=== PATIENT | male | born 1935 | race Caucasian/White ===

== ENCOUNTER 2022-01-31 10:39 | Emergency (ER) | payer MEDICARE, OTHER ==
[2022-01-31 10:52] VITALS: BP 100/53; PULSE 76
[2022-01-31] MEDS ORDERED: Ketorolac 30 MG/ML SDV IM ONE (12:05)
== END 2022-01-31 12:53 | disposition home or self-care (01) ==
LOC: JD.ED 10:39
DX: S80.01XA Contusion of right knee, initial encounter (principal); E11.9 Type 2 diabetes mellitus without complications; F17.210 Nicotine dependence, cigarettes, uncomplicated; Z79.899 Other long term (current) drug therapy; W01.0XXA Fall on same level from slipping, tripping and stumbling without subsequent striking against object, initial encounter
CPT/HCPCS: 73564; 96372; 99283; J1885

== ENCOUNTER 2023-05-10 15:30 | Emergency (ER) | payer MEDICARE, OTHER ==
[2023-05-10] MEDS ORDERED: Lidocaine 2% with EPINEPHrine 1:100,000 20 ML MDV INJECT ONE (16:46)
[2023-05-10] MEDS ORDERED: Diphtheria,Pertussis(Acell),Tetanus Vaccine 0.5 ML Syringe IM ONE (16:54)
[2023-05-10 17:22] LABS: INR 2.75; PROTHROMBIN TIME 27.3 SECONDS (9.7-12.0)
[2023-05-10 19:26] VITALS: BP 135/64; PULSE 83
== END 2023-05-10 18:35 | disposition home or self-care (01) ==
LOC: JD.ED 15:30
DX: S01.01XA Laceration without foreign body of scalp, initial encounter (principal); Z23 Encounter for immunization; D68.2 Hereditary deficiency of other clotting factors; E11.9 Type 2 diabetes mellitus without complications; I48.91 Unspecified atrial fibrillation; F17.210 Nicotine dependence, cigarettes, uncomplicated; Z79.01 Long term (current) use of anticoagulants; Z79.899 Other long term (current) drug therapy; W01.198A Fall on same level from slipping, tripping and stumbling with subsequent striking against other object, initial encounter
CPT/HCPCS: 12002; 36415; 70450; 70450-26; 85610; 90471; 90715; 99284-25; J3490

== ENCOUNTER 2023-05-21 14:30 | Emergency (ER) | payer MEDICARE, OTHER ==
[2023-05-21 14:57] VITALS: BP 102/60; PULSE 85
== END 2023-05-21 14:55 ==
LOC: JD.ED 14:30
DX: Z48.02 Encounter for removal of sutures (principal)
CPT/HCPCS: 99281

== ENCOUNTER 2024-10-12 17:46 | Emergency (ER) | payer MEDICARE, OTHER ==
[2024-10-12 18:00] LABS: BASOPHILS PERCENT AUTO 0.1 % (0.0-1.0); HEMOGLOBIN 11.4 gm/dl (14.0-18.0); IMMATURE GRAN ABSOLUTE AUTO 0.12 K/mm3 (0.00-0.05); IMMATURE GRAN PERCENT AUTO 0.7 % (0.0-0.4); LYMPHOCYTES PERCENT AUTO 5.5 % (24.0-44.0); MEAN CORPUSCULAR HEMOGLOBIN 26.1 pg (28.0-32.0); MEAN CORPUSCULAR HGB CONC 31.7 g/dl (32.0-36.0); MEAN CORPUSCULAR VOLUME 82.4 fl (83.0-99.0); MEAN PLATELET VOLUME 10.3 fl (9.4-12.4); MONOCYTES ABSOLUTE AUTO 1.1 K/mm3 (0.0-0.8); MONOCYTES PERCENT AUTO 6.2 % (0.0-8.0); NEUTROPHILS ABSOLUTE AUTO 16.1 K/mm3 (1.8-7.7); NEUTROPHILS PERCENT AUTO 87.5 % (41.0-71.0); PLATELET COUNT,PLT 298 K/mm3 (150-400); RED BLOOD CELL COUNT 4.37 M/mm3 (4.52-5.90); WHITE BLOOD CELL COUNT,WBC 18.34 K/mm3 (3.9-11.3)
[2024-10-12 18:30] LABS: A/G RATIO 0.8 (1-2); ALBUMIN 3.2 g/dl (3.4-5.0); ANION GAP 20.3 (5-15); BILIRUBIN TOTAL 1.3 mg/dL (0.2-1.0); BUN/CREATININE RATIO 38.5 (14-18); CALCIUM 8.9 mg/dL (8.5-10.1); CREATININE 1.3 mg/dL (0.7-1.3); EST CRCL DRUG DOSING (CG) 29.8 mL/min; MAGNESIUM 2.1 mg/dL (1.8-2.4); POTASSIUM,K 4.3 mEq/L (3.5-5.1)
[2024-10-12 18:34] LABS: INR 3.56; PROTHROMBIN TIME 34.7 SECONDS (9.7-12.0)
[2024-10-12 18:35] LABS: PTT,PARTIAL THROMBOPLSTIN TIME 43.2 SECONDS (21.7-31.4)
[2024-10-12] MEDS: Sodium Chloride 0.9% 1,000 ML IV ONE ×2 (18:37→19:53)
[2024-10-12 18:42] LABS: LACTIC ACID 1.7 mmol/L (0.4-2.0)
[2024-10-12 19:18] LABS: APPEARANCE,URINE CLEAR (Clear); BILIRUBIN,URINE 1+ (Negative); COLOR,URINE YELLOW (Yellow); GLUCOSE,URINE NEGATIVE (Negative); KETONES,URINE 2+ (Negative); LEUKOCYTE ESTERASE,URINE NEGATIVE (Negative); NITRITE,URINE NEGATIVE (Negative); OCCULT BLOOD,URINE 2+ (Negative); PH,URINE 5.5 (5.0-8.0); PROTEIN,URINE 1+ (Negative); UROBILINOGEN,URINE 0.2 (0.2-1.0)
[2024-10-12 19:48] LABS: EPITHELIAL CELLS,URINE 0-5 /hpf (0-5); RBC,URINE 0-5 /hpf (0-5); WBC,URINE 0-5 /hpf (0-5)
[2024-10-12 19:49] LABS: BACTERIA,URINE FEW /hpf (FEW); HYALINE CASTS,URINE 0-5 /lpf (0-5); MUCUS,URINE RARE /hpf (FEW)
[2024-10-12 21:38] VITALS: BP 127/79; PULSE 91
== END 2024-10-12 21:36 | disposition left against medical advice (07) ==
LOC: JD.ED 17:46
DX: M62.82 Rhabdomyolysis (principal); I48.91 Unspecified atrial fibrillation; E11.9 Type 2 diabetes mellitus without complications; Z79.899 Other long term (current) drug therapy; Z79.01 Long term (current) use of anticoagulants; Z53.20 Procedure and treatment not carried out because of patient's decision for unspecified reasons
CPT/HCPCS: 36415; 70450; 71045; 80053; 80307; 81001; 82550; 83605; 83735; 84484; 85025; 85610; 85730; 87040; 93005; 96360; 96361; 99285; J7030

== ENCOUNTER 2024-10-15 12:55 | Inpatient (IN) | payer MEDICARE, OTHER ==
[2024-10-15] MEDS: Sodium Chloride 0.9% 500 ML IV SCH ×2 (13:20→15:00)
[2024-10-15] MEDS: Sodium Chloride 0.9% 10 ML Syringe FLUSH PRN ×2 (13:23)
[2024-10-15 13:39] LABS: BASOPHILS PERCENT AUTO 0.2 % (0.0-1.0); EOSINOPHILS ABSOLUTE AUTO 0.1 K/mm3 (0.0-0.4); EOSINOPHILS PERCENT AUTO 0.5 % (0.0-6.0); HEMATOCRIT 37.2 % (42.0-52.0); HEMOGLOBIN 11.6 gm/dl (14.0-18.0); IMMATURE GRAN PERCENT AUTO 1.1 % (0.0-0.4); LYMPHOCYTES ABSOLUTE AUTO 0.8 K/mm3 (1.0-4.8); LYMPHOCYTES PERCENT AUTO 4.5 % (24.0-44.0); MEAN CORPUSCULAR HEMOGLOBIN 26.3 pg (28.0-32.0); MEAN CORPUSCULAR HGB CONC 31.2 g/dl (32.0-36.0); MEAN CORPUSCULAR VOLUME 84.4 fl (83.0-99.0); MEAN PLATELET VOLUME 10.4 fl (9.4-12.4); MONOCYTES PERCENT AUTO 5.4 % (0.0-8.0); NEUTROPHILS ABSOLUTE AUTO 16.3 K/mm3 (1.8-7.7); NEUTROPHILS PERCENT AUTO 88.3 % (41.0-71.0); PLATELET COUNT,PLT 335 K/mm3 (150-400); RED BLOOD CELL COUNT 4.41 M/mm3 (4.52-5.90); WHITE BLOOD CELL COUNT,WBC 18.42 K/mm3 (3.9-11.3)
[2024-10-15 14:01] LABS: INR 6.24; PROTHROMBIN TIME 58.7 SECONDS (9.7-12.0)
[2024-10-15 14:01] LABS: LACTIC ACID 1.9 mmol/L (0.4-2.0)
[2024-10-15 14:10] LABS: A/G RATIO 0.9 (1-2); ALBUMIN 3.3 g/dl (3.4-5.0); ANION GAP 20.9 (5-15); BILIRUBIN TOTAL 0.9 mg/dL (0.2-1.0); BUN/CREATININE RATIO 65.8 (14-18); CALCIUM 9.2 mg/dL (8.5-10.1); CREATININE 1.2 mg/dL (0.7-1.3); EST CRCL DRUG DOSING (CG) 32.13 mL/min; MAGNESIUM 2.6 mg/dL (1.8-2.4); POTASSIUM,K 3.9 mEq/L (3.5-5.1); PROTEIN TOTAL,TP 7.2 g/dl (6.4-8.2)
[2024-10-15] MEDS: Sodium Chloride 0.9% 1,000 ML IV SCH (16:14)
[2024-10-15] MEDS: Dextrose 5% in Water 1,000 ML IV SCH (17:23)
[2024-10-15] MEDS ORDERED: Acetaminophen 325 MG Tab PO PRN (17:40)
[2024-10-15 19:08] LABS: APPEARANCE,URINE CLEAR (Clear); BILIRUBIN,URINE 1+ (Negative); COLOR,URINE YELLOW (Yellow); GLUCOSE,URINE NEGATIVE (Negative); KETONES,URINE 2+ (Negative); LEUKOCYTE ESTERASE,URINE NEGATIVE (Negative); NITRITE,URINE NEGATIVE (Negative); OCCULT BLOOD,URINE 2+ (Negative); PROTEIN,URINE 1+ (Negative); UROBILINOGEN,URINE 0.2 (0.2-1.0)
[2024-10-15 19:37] LABS: SODIUM,NA 159 mEq/L (136-145)
[2024-10-15 19:38] LABS: OSMOLALITY,SERUM 362 mosm/kg (280-300)
[2024-10-15 19:39] LABS: OSMOLALITY,URINE 788 mosm/kg (400-1100)
[2024-10-15 19:44] LABS: RBC,URINE 20-30 /hpf (0-5); WBC,URINE 0-5 /hpf (0-5)
[2024-10-15 19:45] LABS: BACTERIA,URINE FEW /hpf (FEW); MUCUS,URINE FEW /hpf (FEW); SQUAMOUS EPITHELIAL CELLS,UR 0-5 /hpf (0-5)
[2024-10-15 19:57] LABS: SODIUM,URINE RANDOM 11 mEq/L (40-220)
[2024-10-16 04:23] LABS: BASOPHILS PERCENT AUTO 0.1 % (0.0-1.0); HEMATOCRIT 30.3 % (42.0-52.0); HEMOGLOBIN 9.5 gm/dl (14.0-18.0); IMMATURE GRAN ABSOLUTE AUTO 0.15 K/mm3 (0.00-0.05); IMMATURE GRAN PERCENT AUTO 0.9 % (0.0-0.4); LYMPHOCYTES ABSOLUTE AUTO 1.1 K/mm3 (1.0-4.8); LYMPHOCYTES PERCENT AUTO 6.6 % (24.0-44.0); MEAN CORPUSCULAR HEMOGLOBIN 26.1 pg (28.0-32.0); MEAN CORPUSCULAR HGB CONC 31.4 g/dl (32.0-36.0); MEAN CORPUSCULAR VOLUME 83.2 fl (83.0-99.0); MEAN PLATELET VOLUME 10.3 fl (9.4-12.4); MONOCYTES PERCENT AUTO 5.9 % (0.0-8.0); NEUTROPHILS ABSOLUTE AUTO 14.3 K/mm3 (1.8-7.7); NEUTROPHILS PERCENT AUTO 86.5 % (41.0-71.0); PLATELET COUNT,PLT 264 K/mm3 (150-400); RED BLOOD CELL COUNT 3.64 M/mm3 (4.52-5.90); WHITE BLOOD CELL COUNT,WBC 16.48 K/mm3 (3.9-11.3)
[2024-10-16 04:57] LABS: A/G RATIO 0.7 (1-2); ALBUMIN 2.5 g/dl (3.4-5.0); ANION GAP 11.3 (5-15); BILIRUBIN TOTAL 0.5 mg/dL (0.2-1.0); CALCIUM 8.2 mg/dL (8.5-10.1); EST CRCL DRUG DOSING (CG) 35.37 mL/min; POTASSIUM,K 3.3 mEq/L (3.5-5.1); PROTEIN TOTAL,TP 5.9 g/dl (6.4-8.2)
[2024-10-16 05:38] LABS: INR 7.8; PROTHROMBIN TIME 72.3 SECONDS (9.7-12.0)
[2024-10-16] MEDS: Phytonadione 5 MG Tab PO ONE (06:31)
[2024-10-16 13:26] LABS: HEMATOCRIT 31.4 % (42.0-52.0); HEMOGLOBIN 9.8 gm/dl (14.0-18.0)
[2024-10-17 05:42] LABS: BASOPHILS PERCENT AUTO 0.1 % (0.0-1.0); EOSINOPHILS ABSOLUTE AUTO 0.1 K/mm3 (0.0-0.4); HEMATOCRIT 28.6 % (42.0-52.0); IMMATURE GRAN ABSOLUTE AUTO 0.15 K/mm3 (0.00-0.05); IMMATURE GRAN PERCENT AUTO 1.5 % (0.0-0.4); LYMPHOCYTES ABSOLUTE AUTO 1.5 K/mm3 (1.0-4.8); LYMPHOCYTES PERCENT AUTO 14.3 % (24.0-44.0); MEAN CORPUSCULAR HEMOGLOBIN 26.4 pg (28.0-32.0); MEAN CORPUSCULAR HGB CONC 31.5 g/dl (32.0-36.0); MEAN CORPUSCULAR VOLUME 83.9 fl (83.0-99.0); MEAN PLATELET VOLUME 9.8 fl (9.4-12.4); MONOCYTES ABSOLUTE AUTO 0.8 K/mm3 (0.0-0.8); MONOCYTES PERCENT AUTO 7.5 % (0.0-8.0); NEUTROPHILS ABSOLUTE AUTO 7.8 K/mm3 (1.8-7.7); NEUTROPHILS PERCENT AUTO 75.6 % (41.0-71.0); PLATELET COUNT,PLT 219 K/mm3 (150-400); RED BLOOD CELL COUNT 3.41 M/mm3 (4.52-5.90)
[2024-10-17 06:00] LABS: INR 1.37
[2024-10-17 06:13] LABS: A/G RATIO 0.7 (1-2); ALBUMIN 2.2 g/dl (3.4-5.0); ANION GAP 10.4 (5-15); BILIRUBIN TOTAL 0.5 mg/dL (0.2-1.0); CALCIUM 8.1 mg/dL (8.5-10.1); CREATININE 0.8 mg/dL (0.7-1.3); EST CRCL DRUG DOSING (CG) 45.7 mL/min; POTASSIUM,K 3.4 mEq/L (3.5-5.1); PROTEIN TOTAL,TP 5.5 g/dl (6.4-8.2)
[2024-10-17 06:26] LABS: BUN/CREATININE RATIO 37.5 (14-18)
[2024-10-17 06:34] LABS: PROTHROMBIN TIME 14.2 SECONDS (9.7-12.0)
[2024-10-17] MEDS: Sodium Chloride 0.9% 250 ML IV ONE (08:03)
[2024-10-17] MEDS: D5 1/2 NS w/ 10 mEq/L KCl 1,000 ML IV SCH (08:27)
[2024-10-17] MEDS ORDERED: Naloxone 0.4 MG/ML SDV IVPUSH PRN (09:02)
[2024-10-17] MEDS ORDERED: Acetaminophen 325 MG Tab PO PRN (09:03)
[2024-10-17] MEDS: Sodium Chloride 0.9% 500 ML IV ONE (09:39)
[2024-10-17] MEDS: Morphine 2 MG/ML SYRINGE IVPUSH PRN (09:39)
[2024-10-17] MEDS ORDERED: Ondansetron 4 MG Tab.DIS PO PRN (15:50)
[2024-10-17] MEDS ORDERED: Warfarin 3 MG Tab PO SCH (18:00)
[2024-10-18 09:16] LABS: INR 1.15; PROTHROMBIN TIME 12.1 SECONDS (9.7-12.0)
[2024-10-18] MEDS: Morphine 10 MG/0.5 ML Oral Syringe PO PRN (09:27)
[2024-10-19] MEDS: Acetaminophen 325 MG Tab PO PRN (08:14)
[2024-10-19] MEDS ORDERED: LORazepam 0.5 MG Tab PO PRN (10:19)
[2024-10-20 13:05] VITALS: BP 93/50; PULSE 104
== END 2024-10-20 13:02 | DRG 557 ==
LOC: JD.ED 12:55 → JD.MS 16:30 → EEVIPCON 16:30
PROVIDERS: ADMIT Family Medicine; ATTEND Family Medicine
DX: I21.4 Non-ST elevation (NSTEMI) myocardial infarction (principal); M62.82 Rhabdomyolysis; E43 Unspecified severe protein-calorie malnutrition; R64 Cachexia; E87.0 Hyperosmolality and hypernatremia; Z68.1 Body mass index [BMI] 19.9 or less, adult; I5A Non-ischemic myocardial injury (non-traumatic); D68.9 Coagulation defect, unspecified; Z66 Do not resuscitate; Z51.5 Encounter for palliative care; R62.7 Adult failure to thrive; I48.91 Unspecified atrial fibrillation; R53.1 Weakness; E86.0 Dehydration; Z74.1 Need for assistance with personal care; E86.9 Volume depletion, unspecified; D64.9 Anemia, unspecified; R13.10 Dysphagia, unspecified; R26.89 Other abnormalities of gait and mobility; E86.1 Hypovolemia; L89.152 Pressure ulcer of sacral region, stage 2; I95.9 Hypotension, unspecified; Z98.49 Cataract extraction status, unspecified eye; Z79.899 Other long term (current) drug therapy; Z98.890 Other specified postprocedural states; E11.9 Type 2 diabetes mellitus without complications; Z79.01 Long term (current) use of anticoagulants
CPT/HCPCS: 36415; 70450; 71045; 72125; 80053; 82550; 83605; 83735; 83880; 83930; 84100; 84295; 84484; 85025; 85610; 87040 ×2; 93005; 96360; 96361; 99285; J7030 ×3; 81001; 82947; 83935; 84300; 85014; 85018; 92610-GN; 93010; 97110-GP; 97116-GP; 97162-GP; 97166-GO; 97530-GP; 97535-GO; 99291; A9270-GY; J2270; J3430; J3480; J7040; J7050; J7070; U0002